=== PATIENT | male | born 1945 | race Asian ===

== ENCOUNTER 2018-09-04 17:55 | Emergency (ER) | payer OTHER ==
[~2018-09-04] VITALS: Ht 167.6 cm; Wt 68.7 kg
[2018-09-04 18:02] VITALS: Ht 167.6 cm; Wt 68.7 kg
[2018-09-04 21:08] VITALS: BP 161/79
== END 2018-09-04 21:08 | disposition home or self-care (01) ==
LOC: ED 17:55
DX: S81.811A Laceration without foreign body, right lower leg, initial encounter (principal); W26.8XXA Contact with other sharp object(s), not elsewhere classified, initial encounter; Y93.89 Activity, other specified; Y92.098 Other place in other non-institutional residence as the place of occurrence of the external cause; Y99.8 Other external cause status
CPT/HCPCS: 90715; J2001

== ENCOUNTER 2018-09-06 18:13 | Emergency (ER) | payer OTHER ==
[~2018-09-06] VITALS: Ht 167.6 cm; Wt 68.0 kg
[2018-09-06 18:32] VITALS: BP 141/94; Ht 167.6 cm; Wt 68.0 kg
== END 2018-09-06 19:41 | disposition home or self-care (01) ==
LOC: ED 18:13
DX: S81.811D Laceration without foreign body, right lower leg, subsequent encounter (principal); W26.8XXD Contact with other sharp object(s), not elsewhere classified, subsequent encounter

== ENCOUNTER 2018-09-20 12:45 | Emergency (ER) | payer OTHER ==
[~2018-09-20] VITALS: Ht 165.1 cm; Wt 67.6 kg
[2018-09-20 12:47] VITALS: BP 142/99; Ht 165.1 cm; Wt 67.6 kg
== END 2018-09-20 15:12 | disposition home or self-care (01) ==
LOC: ED 12:45
DX: S81.811D Laceration without foreign body, right lower leg, subsequent encounter (principal); X58.XXXD Exposure to other specified factors, subsequent encounter